=== PATIENT | female | born 1930 | race Caucasian/White ===

== ENCOUNTER 2019-01-04 23:03 | Inpatient (IN) ==
[2019-01-05 01:22] LABS: Osmolality,Calculated 296.1 MOS/KG (273-304); Potassium 3.6 MMOL/L (3.5-5.1)
[2019-01-05 01:28] LABS: Apearance,Urine CLOUDY (Clear); Bilirubin,Urine Negative (Negative); Blood, Urine Moderate mg/dL (Negative); Glucose,Urine (UA) Negative (Negative); Hyaline Casts,Urine 7 /LPF (0-3); Ketones,Urine Negative (Negative); Mucus,Urine Occasional /LPF (Occasional); Nitrite,Urine Positive (Negative); Protein,Urine Negative; Squamous Epithelial Cell,Urine Occasional /HPF (0-10); Urine Color Yellow (Yellow); Urine Specific Gravity 1.014 (1.001-1.035); Urine Urobilinogen < 2.0 EU/DL (0.2-1.0); WBC,Urine 214 /HPF (0-6)
[2019-01-05] MEDS ORDERED: SODIUM CHLORIDE 0.9% 1,000 ML IV STA ×2 (01:31→02:06)
[2019-01-05] MEDS ORDERED: ONDANSETRON 4 MG/2 ML VIAL IV STA (01:32)
[2019-01-05] MEDS ORDERED: cefTRIAXone 1,000 MG in SODIUM CHLORIDE 0.9% 100 ML IV STA (01:34)
[2019-01-05 01:49] LABS: Basophils # 0.1 10*3/uL (0.0-0.2); Basophils % 0.3 % (0.0-0.8); Hematocrit 40.7 VOL% (35.7-47.0); Hemoglobin 13.8 GM/DL (12.0-16.0); Immature Granulocytes % 0.9 %; Immature Granulocytes Absolute 0.33 #; Lymphocytes # 1.4 10*3/uL (1.4-4.0); Mean Corpuscular HGB Conc 33.9 GM/DL (32-36); Mean Corpuscular Hemoglobin 30 PG (27-34); Mean Corpuscular Volume 87.2 FL (87-102); Mean Platelet Volume 12.3 FL (9.6-12.0); Monocytes # 1.7 10*3/uL (0.11-0.8); Monocytes % 4.8 % (1.7-12.7); Neutrophils # 31.5 10*3/uL (1.4-7.4); Platelet Count 129 T/CUMM (130-400); Red Blood Count 4.67 MC/CUMM (3.8-5.5)
[2019-01-05] MEDS ORDERED: ONDANSETRON 4 MG/2 ML VIAL IV PRN (02:05)
[2019-01-05] MEDS ORDERED: ACETAMINOPHEN 325 MG TABLET PO PRN (02:05)
[2019-01-05] MEDS ORDERED: CEFEPIME 2,000 MG in SODIUM CHLORIDE 0.9% 100 ML IV STA (02:06)
[2019-01-05] MEDS ORDERED: VANCOMYCIN INJ 750 MG in SODIUM CHLORIDE 0.9% 250 ML IV STA (02:07)
[2019-01-05] MEDS ORDERED: VANCOMYCIN INJ 1,000 MG in SODIUM CHLORIDE 0.9% 250 ML IV STA (02:15)
[2019-01-05] MEDS ORDERED: SODIUM CHLORIDE 0.9% 100 ML IV ONE (02:22)
[2019-01-05] MEDS ORDERED: CEFEPIME 2,000 MG VIAL ONE (02:22)
[2019-01-05 04:40] LABS: Band Neutrophils 3 % (0-10); Lymphocytes 2 % (20-55); Segmented Neutrophils 92 % (50-85); Total Cells Counted 100
[2019-01-05 04:41] LABS: Anisocytosis 1+; Platelet Estimate Adequate
[2019-01-05] MEDS: SODIUM CHLORIDE 0.9% 1,000 ML IV SCH ×3 (05:10→19:50)
[2019-01-05 06:17] LABS: Basophils # 0.1 10*3/uL (0.0-0.2); Basophils % 0.2 % (0.0-0.8); Hematocrit 36.4 VOL% (35.7-47.0); Hemoglobin 12.4 GM/DL (12.0-16.0); Immature Granulocytes % 1.1 %; Immature Granulocytes Absolute 0.36 #; Lymphocytes # 1.5 10*3/uL (1.4-4.0); Lymphocytes % 4.5 % (21.3-54.2); Mean Corpuscular HGB Conc 34.1 GM/DL (32-36); Mean Corpuscular Hemoglobin 30 PG (27-34); Mean Corpuscular Volume 87.3 FL (87-102); Mean Platelet Volume 11.4 FL (9.6-12.0); Monocytes # 2.4 10*3/uL (0.11-0.8); Monocytes % 7.3 % (1.7-12.7); Neutrophils # 29.1 10*3/uL (1.4-7.4); Neutrophils % 86.9 % (38.7-73.9); Platelet Count 95 T/CUMM (130-400); Red Blood Count 4.17 MC/CUMM (3.8-5.5); Red Cell Distribution Width 14.9 % (9.3-17.3); White Blood Count 33.5 T/CUMM (4-12)
[2019-01-05 06:34] LABS: Calcium 8.5 MG/DL (8.5-10.1); Osmolality,Calculated 298.5 MOS/KG (273-304); Potassium 3.2 MMOL/L (3.5-5.1)
[2019-01-05 06:57] LABS: Lymphocytes 6 % (20-55); Segmented Neutrophils 87 % (50-85); Total Cells Counted 100
[2019-01-05 06:58] LABS: Hypochromasia 1+; Microcytosis 1+; Ovalocytes Slight; Platelet Estimate Decreased
[2019-01-05] MEDS: ASPIRIN EC 81 MG TABLET PO SCH (09:07)
[2019-01-05] MEDS: MULTIVITAMIN (CENTRUM) TABLET PO SCH (09:07)
[2019-01-05] MEDS: POTASSIUM CHLORIDE 20 MEQ TABLET PO PRN ×4 (09:08→18:34)
[2019-01-05] MEDS: ENOXAPARIN 30 MG/0.3 ML SYRINGE SUBCUT SCH (09:08)
[2019-01-05] MEDS: PANTOPRAZOLE 40 MG TABLET PO SCH (09:08)
[2019-01-05] MEDS: OMEGA 3 ACID ETHYL ESTERS 1 GM CAPSULE PO SCH (09:08)
[2019-01-05] MEDS: CALCIUM (CARBONATE) 600 MG TABLET PO SCH (09:08)
[2019-01-05] MEDS ORDERED: TUBERCULIN SKIN TEST 0.1 ML SYRINGE INTRADERM ONE (15:30)
[2019-01-05] MEDS: SIMVASTATIN 10 MG TABLET PO SCH (21:56)
[2019-01-06] MEDS ORDERED: cefTRIAXone 1,000 MG in SYRINGE 1 EACH IV SCH (03:00)
[2019-01-06 08:24] LABS: Basophils % 0.2 % (0.0-0.8); Eosinophils # 0.2 10*3/uL (0.0-0.87); Eosinophils % 1.4 % (0.00-10.9); Hemoglobin 11.1 GM/DL (12.0-16.0); Immature Granulocytes % 2.7 %; Immature Granulocytes Absolute 0.39 #; Lymphocytes # 1.4 10*3/uL (1.4-4.0); Lymphocytes % 9.4 % (21.3-54.2); Mean Corpuscular HGB Conc 32.6 GM/DL (32-36); Mean Corpuscular Hemoglobin 29 PG (27-34); Mean Corpuscular Volume 89.2 FL (87-102); Mean Platelet Volume 12.2 FL (9.6-12.0); Monocytes # 1.4 10*3/uL (0.11-0.8); Monocytes % 9.6 % (1.7-12.7); Neutrophils # 11.2 10*3/uL (1.4-7.4); Neutrophils % 76.7 % (38.7-73.9); Red Blood Count 3.81 MC/CUMM (3.8-5.5); Red Cell Distribution Width 15.3 % (9.3-17.3)
[2019-01-06 08:26] LABS: Platelet Count 81 T/CUMM (130-400); White Blood Count 14.5 T/CUMM (4-12)
[2019-01-06 08:34] LABS: Calcium 8.2 MG/DL (8.5-10.1); Osmolality,Calculated 286.5 MOS/KG (273-304); Potassium 4.1 MMOL/L (3.5-5.1)
[2019-01-06 08:45] LABS: Hypochromasia 1+; Platelet Estimate Decreased
[2019-01-06] MEDS: CALCIUM (CARBONATE) 600 MG TABLET PO SCH (09:55)
[2019-01-06] MEDS: OMEGA 3 ACID ETHYL ESTERS 1 GM CAPSULE PO SCH (09:55)
[2019-01-06] MEDS: ASPIRIN EC 81 MG TABLET PO SCH (09:55)
[2019-01-06] MEDS: MULTIVITAMIN (CENTRUM) TABLET PO SCH (09:55)
[2019-01-06] MEDS: ENOXAPARIN 30 MG/0.3 ML SYRINGE SUBCUT SCH (09:55)
[2019-01-06] MEDS: PANTOPRAZOLE 40 MG TABLET PO SCH (09:58)
[2019-01-06] MEDS: SIMVASTATIN 10 MG TABLET PO SCH (21:07)
[2019-01-06] MEDS: SODIUM CHLORIDE 0.9% 1,000 ML IV SCH (22:02)
[2019-01-07 04:12] LABS: Basophils % 0.3 % (0.0-0.8); Eosinophils # 0.3 10*3/uL (0.0-0.87); Hematocrit 34.7 VOL% (35.7-47.0); Hemoglobin 11.6 GM/DL (12.0-16.0); Immature Granulocytes % 4.2 %; Immature Granulocytes Absolute 0.41 #; Lymphocytes # 1.6 10*3/uL (1.4-4.0); Lymphocytes % 16.2 % (21.3-54.2); Mean Corpuscular HGB Conc 33.4 GM/DL (32-36); Mean Corpuscular Hemoglobin 30 PG (27-34); Mean Corpuscular Volume 90.1 FL (87-102); Mean Platelet Volume 11.9 FL (9.6-12.0); Monocytes # 0.9 10*3/uL (0.11-0.8); Monocytes % 9.5 % (1.7-12.7); Neutrophils # 6.6 10*3/uL (1.4-7.4); Neutrophils % 66.8 % (38.7-73.9); Platelet Count 92 T/CUMM (130-400); Red Blood Count 3.85 MC/CUMM (3.8-5.5); White Blood Count 9.8 T/CUMM (4-12)
[2019-01-07 04:34] LABS: Eosinophils 5 % (0-10); Lymphocytes 10 % (20-55); Segmented Neutrophils 79 % (50-85); Total Cells Counted 100
[2019-01-07 04:35] LABS: Hypochromasia 1+; Ovalocytes Slight; Platelet Estimate Decreased
[2019-01-07 04:39] LABS: Calcium 8.1 MG/DL (8.5-10.1); Osmolality,Calculated 279.8 MOS/KG (273-304); Potassium 3.9 MMOL/L (3.5-5.1)
[2019-01-07] MEDS: cefTRIAXone 1,000 MG VIAL IM SCH (06:17)
[2019-01-07] MEDS: ENOXAPARIN 30 MG/0.3 ML SYRINGE SUBCUT SCH (08:34)
[2019-01-07] MEDS: OMEGA 3 ACID ETHYL ESTERS 1 GM CAPSULE PO SCH (08:35)
[2019-01-07] MEDS: ASPIRIN EC 81 MG TABLET PO SCH (08:35)
[2019-01-07] MEDS: PANTOPRAZOLE 40 MG TABLET PO SCH (08:35)
[2019-01-07] MEDS: MULTIVITAMIN (CENTRUM) TABLET PO SCH (08:35)
[2019-01-07] MEDS: CALCIUM (CARBONATE) 600 MG TABLET PO SCH (08:35)
[2019-01-07] MEDS: SIMVASTATIN 10 MG TABLET PO SCH (20:42)
[2019-01-08] MEDS: cefTRIAXone 1,000 MG VIAL IM SCH (06:02)
[2019-01-08 08:26] VITALS: BP 114/52
== END 2019-01-08 10:05 | DRG 872 ==
LOC: N.ED 23:03 → N.EDINP 01-05 01:59 → SUATTDRO 01-05 01:59 → N.5E 01-05 02:35
PROVIDERS: ADMIT Internal Medicine; ATTEND Hospitalist